=== PATIENT | male | born 1975 | race Caucasian/White ===

== ENCOUNTER 2025-04-27 12:05 | Emergency (ER) | payer OTHER ==
[~2025-04-27] VITALS: Ht 185.4 cm; Wt 63.5 kg
[2025-04-27 12:40] LABS: PLATELET COUNT (AUTO) 334 K/uL (150-450); RED BLOOD CELL COUNT(AUTO) 4.75 MIL/uL (4.5-6.0); RED CELL DISTRIBUTION WIDTH 13.4 % (11.5-15.0); WHITE BLOOD COUNT (AUTO) 6.5 K/uL (4.3-11.0)
[2025-04-27 12:48] LABS: CALCIUM, SERUM 8.9 mg/dL (8.5-10.1); CREATININE 1.0 mg/dL (0.6-1.3); SODIUM SERUM 134 mmol/L (136-145); UREA NITROGEN, BLOOD 17 mg/dL (7-18)
[2025-04-27 13:00] LABS: NT-PRO BNP 12 pg/mL (0-125)
[2025-04-27] MEDS ORDERED: ASPIRIN EC 325 MG TABLET.DR PO ONE (13:10)
[2025-04-27] MEDS: ASPIRIN 325 MG TABLET PO ONE (13:12)
[2025-04-27 13:54] VITALS: BP 128/68; TEMP 97.9; O2SAT 100
== END 2025-04-27 13:54 | disposition home or self-care (01) ==
LOC: ER 12:18
DX: R07.9 Chest pain, unspecified (principal); F17.200 Nicotine dependence, unspecified, uncomplicated; R06.02 Shortness of breath
CPT/HCPCS: 36415; 71045-TC; 80048-TC; 83880; 84484-TC; 85025-TC; 85378-TC